=== PATIENT | female | born 1955 | race Caucasian/White ===

== ENCOUNTER 2022-10-08 07:50 | Outpatient (CLI) | payer MEDICARE, OTHER, SELFPAY ==
--- NOTE | 2022-10-08 08:01 | FL_ITS ---
WS: [id number] ESOPHAGRAM WITH FLUOROSCOPY HISTORY: NONTOXIC SINGLE THYROID NODULE. OTHER DYSPHAGIA COMPARISON: None available. FLUOROSCOPY TIME: 1min [id number] # of spot films: 67 Limited evaluation. Due to patient's condition examination was performed supine. Esophagus and swallowing function: Patient swallowed the barium mixture without difficulty. Moderate cricopharyngeal spasm. There is anterior small web. No significant limitations during the swallowing were identified. Moderate tertiary contractions in the mid to distal esophagus. Gastroesophageal reflux: None. Hiatal hernia: Intermittently visualized small to moderate hiatal hernia. FL/FL barium swallow [id number] IMPRESSION: 1. Moderate cricopharyngeal spasm did not limit swallowing function and flow o f contrast. 2. Mild esophageal dysmotility with tertiary contractions. 3. Small to moderate hiatal hernia.
--- NOTE | 2022-10-08 08:01 | CT_ITS ---
WS: [id number] CT NECK TECHNIQUE: Contrast-enhanced CT of the neck with coronal and sagittal reformatted images. CLINICAL INFORMATION: NONTOXIC SINGLE THYROID NODULE COMPARISON: None. DLP: 257.[address] scans at [facility] use at least one of these dose optimization techniques: automated e xposure control; mA and/or kV adjustment per patient size (includes targeted exams where dose is matc hed to clinical indication); or iterative reconstruction. FINDINGS: Extensive dental artifact. Parotid glands are normal. Splenic granulomas are normal. Visualized tongu e base appears normal. Normal posterior nasopharynx. Normal parapharyngeal fat. No evidence of suprag lottic or glottic mass. Partially visualized paranasal sinuses are well aerated. Mastoid air cells we ll aerated. Slightly nodular thyroid. No airway narrowing. Lung apices are well aerated. Moderate spondylitic changes cervical spine. A few prominent upper cer vical chain and submandibular lymph nodes measuring up to 10 to 11 mm. No other suspicious findings. CT/CT neck w con* [id number] IMPRESSION: 1. Slightly nodular thyroid gland. No airway narrowing. 2. No evidence of supraglottic or glottic mass. Normal posterior nasopharynx. 3. Normal salivary glands. 4. A few slightly prominent upper cervical chain and submandibular lymph nodes measuring 10 to 11 mm nonspecific but may be reactive. 5. No other suspicious findings.
[2022-10-08] MEDS: iohexol 350 mg/mL 500 mL Btl (per mL) IV (08:07)
== END 2022-10-08 07:51 | disposition home or self-care (01) ==
LOC: RAD 07:55
PROVIDERS: Visit Provider Specialist
DX: E04.1 Nontoxic single thyroid nodule (principal); R13.19 Other dysphagia; K44.9 Diaphragmatic hernia without obstruction or gangrene
CPT/HCPCS: 70491; 74220; Q9967

== ENCOUNTER → 2022-11-22 13:14 | Outpatient (BNVA) | payer MEDICARE, OTHER, SELFPAY | PROVIDERS: Visit Provider Internal Medicine | DX: E04.1 Nontoxic single thyroid nodule (principal); R94.6 Abnormal results of thyroid function studies; R13.10 Dysphagia, unspecified; R23.2 Flushing; E11.9 Type 2 diabetes mellitus without complications; Z79.84 Long term (current) use of oral hypoglycemic drugs; Z79.4 Long term (current) use of insulin | CPT/HCPCS: 99214 ==

== ENCOUNTER → 2023-02-14 08:54 | Outpatient (BNVA) | payer MEDICARE, OTHER, SELFPAY | PROVIDERS: Visit Provider Internal Medicine | DX: E04.1 Nontoxic single thyroid nodule (principal); R94.6 Abnormal results of thyroid function studies; R39.89 Other symptoms and signs involving the genitourinary system; E78.9 Disorder of lipoprotein metabolism, unspecified; Z79.84 Long term (current) use of oral hypoglycemic drugs; Z79.4 Long term (current) use of insulin; E11.9 Type 2 diabetes mellitus without complications | CPT/HCPCS: 36415; 80053; 80061; 81001; 82044; 83036; 84439; 84443; 84480; 87077; 87086; 87186; 99215 ==

== ENCOUNTER → 2023-05-04 12:45 | Outpatient (BNVA) | payer MEDICARE, OTHER, SELFPAY | PROVIDERS: Visit Provider Internal Medicine | DX: E04.1 Nontoxic single thyroid nodule (principal); E11.9 Type 2 diabetes mellitus without complications; R94.6 Abnormal results of thyroid function studies; R39.89 Other symptoms and signs involving the genitourinary system; Z79.4 Long term (current) use of insulin; Z79.84 Long term (current) use of oral hypoglycemic drugs | CPT/HCPCS: 80053; 80061; 82044; 83036; 84439; 84443; 84480; 99215 ==

== ENCOUNTER → 2023-05-26 14:05 | Outpatient (BNVA) | payer MEDICARE, OTHER, SELFPAY | PROVIDERS: Referring Provider Internal Medicine; Visit Provider Internal Medicine | DX: R07.9 Chest pain, unspecified (principal) | CPT/HCPCS: 93005; 99204 ==

== ENCOUNTER → 2023-06-09 10:50 | Outpatient (BNVA) | payer MEDICARE, OTHER, SELFPAY | PROVIDERS: Visit Provider Internal Medicine | DX: E11.9 Type 2 diabetes mellitus without complications (principal); E04.1 Nontoxic single thyroid nodule; R94.6 Abnormal results of thyroid function studies; R13.10 Dysphagia, unspecified; R23.2 Flushing; R39.89 Other symptoms and signs involving the genitourinary system; I25.10 Atherosclerotic heart disease of native coronary artery without angina pectoris; Z79.4 Long term (current) use of insulin; Z79.84 Long term (current) use of oral hypoglycemic drugs; Z79.85 Long-term (current) use of injectable non-insulin antidiabetic drugs | CPT/HCPCS: 99215 ==

== ENCOUNTER → 2023-08-01 11:06 | Outpatient (BNVA) | payer MEDICARE, OTHER, SELFPAY | PROVIDERS: Visit Provider Internal Medicine | DX: E11.9 Type 2 diabetes mellitus without complications (principal); E04.1 Nontoxic single thyroid nodule; R94.6 Abnormal results of thyroid function studies; R13.10 Dysphagia, unspecified; R23.2 Flushing; R39.89 Other symptoms and signs involving the genitourinary system; I25.10 Atherosclerotic heart disease of native coronary artery without angina pectoris; Z79.4 Long term (current) use of insulin; Z79.84 Long term (current) use of oral hypoglycemic drugs | CPT/HCPCS: 99215 ==

== ENCOUNTER 2023-08-11 09:01 | Outpatient (CLI) | payer MEDICARE, OTHER, SELFPAY ==
--- NOTE | 2023-08-11 09:05 | MR_ITS ---
WS: [id number] MRI NECK WITH CONTRAST TECHNIQUE: Noncontrast axial T1, axial T2 FSE fat sat, coronal T2 fat sat, coronal T1, coronal T1 fat sat, sagittal T2 fat sat, plus contrast enhanced coronal, sagittal, and axial T1 fat sat images obta ined. CLINICAL INFORMATION: NONTOXIC SINGLE THYROID NODULE/OTHER DYSPHAGIA COMPARISON: CT neck 10/08/2022 FINDINGS: Images are somewhat limited due to body habitus and respiratory motion artifact. Multinodul ar thyroid similar to the prior CT 10/08/2022. This would be better evaluated with ultrasound if indic ated. Asymmetric enhancing prominent soft tissue eccentric to the RIGHT at the tongue base involving the li ngual tonsils. This partially effaces the vallecula bilaterally. Recommend direct visualization with biopsy to exclude neoplasm in this area. Normal glottis and subglottic airway. Prominent uvula. Normal visualized posterior fossa. Susceptibility artifact from dental hardware degrades images in th e anterior face and tongue base. Parotid glands appear normal. Normal submandibular glands. Enlarged LEFT submandibular lymph node measuring 10 mm unchanged since the prior neck CT. Normal posterior dagmar opharynx. Normal glottis. No evidence of supraglottic or glottic mass. Normal subglottic airway. Norm al prevertebral soft tissues. Prominent RIGHT submandibular lymph node measuring 9 mm also unchanged since the prior CT. Mild spond ylitic changes cervical spine. No other suspicious findings considering limitations. IMPRESSION: Limited examination due to body habitus and respiratory artifact. 1. Multinodular thyroid not well evaluated due to motion artifact. This appears similar to the prior CT. This could be further evaluated with ultrasound if indicated. 2. Asymmetric enhancing soft tissue at the tongue base and lingual tonsils eccentric to the RIGHT wi th protrusion into the RIGHT greater than LEFT vallecula. Recommend direct visualization to exclude n eoplasm in this area. 3. Prominent uvula. 4. Otherwise no evidence of supraglottic or glottic mass. Normal subglottic airway. 5. Normal salivary glands. 6. Prominent submandibular lymph nodes measuring 9 to 10 mm unchanged since the prior neck CT. No ot her suspicious lymph nodes visualized. 7. No prevertebral or retropharyngeal fluid collections. 8. No other suspicious findings.
[2023-08-11] MEDS: gadobenate dimeglumine 20 mL vial IV (10:05)
== END 2023-08-11 09:02 | disposition home or self-care (01) ==
LOC: RAD 09:01
PROVIDERS: Visit Provider Specialist
DX: E04.1 Nontoxic single thyroid nodule (principal); R13.19 Other dysphagia; J35.1 Hypertrophy of tonsils; F17.200 Nicotine dependence, unspecified, uncomplicated
CPT/HCPCS: 70543; A9577

== ENCOUNTER → 2024-01-16 11:45 | Outpatient (BNVA) | payer MEDICARE, OTHER, SELFPAY | PROVIDERS: Visit Provider Internal Medicine | DX: E04.1 Nontoxic single thyroid nodule (principal); R94.6 Abnormal results of thyroid function studies; R13.10 Dysphagia, unspecified; R23.2 Flushing; R39.89 Other symptoms and signs involving the genitourinary system; E11.9 Type 2 diabetes mellitus without complications; I25.10 Atherosclerotic heart disease of native coronary artery without angina pectoris; Z79.84 Long term (current) use of oral hypoglycemic drugs | CPT/HCPCS: 99214 ==

== ENCOUNTER → 2024-05-15 12:00 | Outpatient (BNVA) | payer MEDICARE, OTHER, SELFPAY | PROVIDERS: Visit Provider Internal Medicine | DX: E11.9 Type 2 diabetes mellitus without complications (principal); E04.1 Nontoxic single thyroid nodule; R94.6 Abnormal results of thyroid function studies; I25.10 Atherosclerotic heart disease of native coronary artery without angina pectoris; R13.10 Dysphagia, unspecified; R23.2 Flushing; R39.89 Other symptoms and signs involving the genitourinary system | CPT/HCPCS: 99214 ==

== ENCOUNTER → 2024-07-16 09:09 | Outpatient (BNVA) | payer MEDICARE, OTHER, SELFPAY | PROVIDERS: Visit Provider Nurse Practitioner Family | DX: I25.10 Atherosclerotic heart disease of native coronary artery without angina pectoris (principal); Z79.01 Long term (current) use of anticoagulants; Z95.5 Presence of coronary angioplasty implant and graft; I87.8 Other specified disorders of veins; E11.9 Type 2 diabetes mellitus without complications; Z79.4 Long term (current) use of insulin | CPT/HCPCS: 99214 ==

== ENCOUNTER → 2024-09-11 12:08 | Outpatient (BNVA) | payer MEDICARE, OTHER, SELFPAY | PROVIDERS: Visit Provider Internal Medicine | DX: E11.9 Type 2 diabetes mellitus without complications (principal); E04.1 Nontoxic single thyroid nodule; R94.6 Abnormal results of thyroid function studies | CPT/HCPCS: 99214 ==

== ENCOUNTER → 2025-01-15 13:31 | Outpatient (BNVA) | payer MEDICARE, OTHER, SELFPAY | PROVIDERS: Visit Provider Internal Medicine | DX: I25.10 Atherosclerotic heart disease of native coronary artery without angina pectoris (principal); E11.9 Type 2 diabetes mellitus without complications; Z79.4 Long term (current) use of insulin; I65.23 Occlusion and stenosis of bilateral carotid arteries; F17.200 Nicotine dependence, unspecified, uncomplicated | CPT/HCPCS: 99214 ==

== ENCOUNTER 2025-01-25 14:05 | Outpatient (CLI) | payer MEDICARE, OTHER, SELFPAY ==
--- NOTE | 2025-01-25 13:30 | USCV_ITS ---
Gillian Lane Age: 69 Gender: F : 1955 Exam Date: 01/25/2025 14:17 Ordering Phys: Roberto Upton M.D ([email or web address]) Technologist: MERT Exam Location: [facility] – [place] Indication: stenosis Risk Factors: Previous Vascular Surgery: Right Brachial BP: / Left Brachial BP: / Right Left Velocity (cm/s) Spectral Plaque Velocity (cm/s) Spectral Plaque Syst/Diast Broadening Syst/Diast Broadening 101.20/16.80 Prox CCA 99.00 / 17.90 80.90/ 15.70 Mid CCA 95.40 / 19.70 73.70/ 16.70 Distal CCA 91.80 / 16.10 28.00/ 7.70 Prox ICA 46.20 / 12.10 64.80/ 20.50 Mid ICA 54.40 / 18.00 50.70/ 19.60 Distal ICA 59.90 / 21.40 93.90 ECA 93.90 0.90 ICA/CCA 0.70 Antegrade Vertebral Antegrade 60.00/ 21.30 cm/s 31.00/ 9.50 cm/s Tri Subclavian Tri 58.20 85.10 CONCLUSIONS Right ICA stenosis <50%. Mild atheromatous plaque right carotid bulb/ICA. Left ICA stenosis <50%. Mild atheromatous plaque left carotid bulb/ICA. Intimal thickening in the common carotid arteries and internal carotid arteries bilaterally. Normal antegrade Doppler flow noted in the right vertebral artery. Normal antegrade Doppler flow noted in the left vertebral artery. Dean Roper MD (Electronically Signed) Final Date: 28 January 2025 14:49 S
== END 2025-01-25 14:06 | disposition home or self-care (01) ==
LOC: RAD 14:07
PROVIDERS: Visit Provider Internal Medicine
DX: I65.23 Occlusion and stenosis of bilateral carotid arteries (principal)
CPT/HCPCS: 93880